=== PATIENT | male | born 1935 | race Caucasian/White ===

== ENCOUNTER → 2017-01-13 | Outpatient (CLI) | payer OTHER, MEDICARE ==
--- NOTE | 2017-01-13 14:17 | DIAGNOSTIC IMAGING REPORT ---
CHEST 2 VIEWS ROUTINE CLINICAL HISTORY: J44.9 Chronic obstructive pulmonary [id number] COMPARISON STUDY: No previous studies for comparison. FINDINGS: The heart is enlarged. There is mild interstitial thickening likely chronic. There is no lobar consolidation. There are no pleural effusions.[ There are surgical clips at the base of the neck. IMPRESSION: Cardiomegaly and mild interstitial thickening. No evidence of focal pulmonary consolidation Electronically signed by: Bhaskar Campos M.D. 01/13/2017 2:16 PM Dictated Date/Time: 01/13/2017 2:16 PM
== END | disposition home or self-care (01) ==
LOC: C.RAD1850 14:03
PROVIDERS: ATTEND Physician Assistant
DX: J44.9 Chronic obstructive pulmonary disease, unspecified (principal); I51.7 Cardiomegaly

== ENCOUNTER → 2017-01-29 | Outpatient (CLI) | payer OTHER, MEDICARE ==
[~2017-01-29] MED LIST: OPTIRAY 320 IV PRN; PATIENT'S ALLERGY INFO NEEDS ENTERED SCH
[2017-01-29 12:37] LABS: BLOOD UREA NITROGEN 19 mg/dl (7-18); BUN/CREATININE RATIO 13.6 (10-20); CALCIUM 9.3 mg/dl (8.5-10.1); CARBON DIOXIDE 30 mmol/L (21-32); CHLORIDE 101 mmol/L (98-107); GLUCOSE 99 mg/dl (70-99); POTASSIUM 4.1 mmol/L (3.5-5.1); SODIUM 137 mmol/L (136-145)
--- NOTE | 2017-01-29 13:13 | DIAGNOSTIC IMAGING REPORT ---
CT ANGIOGRAM OF THE CHEST CLINICAL HISTORY: Cough and dyspnea. Hypoxia. COMPARISON STUDY: Chest x-ray dated 01/13/2017. TECHNIQUE: Following the IV administration of 97 cc of Optiray 320, CT angiogram of the chest was performed from the upper abdomen to the thoracic inlet utilizing the pulmonary embolus protocol. Images are reviewed in the axial, sagittal, and coronal planes. 3-D MIPS images are created and assessed. IV contrast was administered without complication. A dose lowering technique was utilized adhering to the principles of ALARA. The examination is degraded by motion artifact. CT DOSE: 536.13 mGy.cm FINDINGS: Thyroid: Imaged portions of the thyroid gland are normal in size and attenuation. Thoracic aorta: There is atherosclerotic calcification of the thoracic aorta, which is normal in caliber and demonstrates standard 3-vessel arch anatomy. No dissection is seen. Pulmonary vasculature: The pulmonary trunk is normal in caliber. There are no filling defects identified in main, lobar, or proximal segmental pulmonary branches to suggest pulmonary embolus. Evaluation of the peripheral branches is degraded by motion artifact. Heart: The heart is enlarged and without pericardial effusion. The coronary arteries are densely calcified. Lungs and pleural spaces: Evaluation of the lung parenchyma is degraded by motion artifact. Advanced emphysematous change is identified. Layering secretions are present in the trachea. Linear scarring versus atelectasis is present in the lung bases. Mediastinum: There are scattered subcentimeter mediastinal lymph nodes. These are not pathologically enlarged by size criteria. Cathy: Clear. Axillae: There is no axillary lymphadenopathy. Upper abdomen: The partially visualized kidneys insert cortical atrophy. Partially visualized upper abdominal viscera is within normal limits. Skeletal structures: The skeletal structures are osteopenic. There are mild and age indeterminant superior endplate compression deformities of T12 and L1. No lytic or blastic bony lesions are seen. IMPRESSION: 1. Motion degraded examination. 2. There is no evidence of pulmonary embolus in the main, lobar, or proximal segmental pulmonary arteries. 3. Cardiomegaly and emphysema. 4. There is no airspace consolidation or pleural effusion. 5. Additional findings as above. Electronically signed by: Lobito Orr M.D. 01/29/2017 1:12 PM Dictated Date/Time: 01/29/2017 1:06 PM
[2017-01-29 13:36] LABS: INFLUENZA A PCR Neg for Influ A (NEG); INFLUENZA B PCR Neg for Influ B (NEG)
== END | disposition home or self-care (01) ==
LOC: C.CTS 11:35
PROVIDERS: ATTEND Physician Assistant
DX: R06.02 Shortness of breath (principal); R05 Cough; R09.02 Hypoxemia

== ENCOUNTER 2017-02-16 14:41 | Inpatient (IN) | payer OTHER, MEDICARE ==
[~2017-02-16] VITALS: Ht 177.8 cm; Wt 87.8 kg
[2017-02-16] VITALS (7 sets, daily range): BP systolic 102–128; BP diastolic 62–79; PULSE 63–89; TEMP 36.2–37.1; O2SAT 88–95; BMI 27.8
[2017-02-16] MEDS ORDERED: MAGNESIUM HYDROXIDE SUSP 30 ML UDC PO PRN (15:45)
[2017-02-16] MEDS ORDERED: ONDANSETRON INJ 2 MG/ML 2 ML VIAL IV PRN (15:45)
[2017-02-16] MEDS ORDERED: GLUCOSE 10 TABS/TUBE PO PRN (15:45)
[2017-02-16] MEDS ORDERED: DEXTROSE 50% 50 ML SYR IV PRN (15:45)
[2017-02-16] MEDS ORDERED: ACETAMINOPHEN 325 MG TAB PO PRN (15:45)
[2017-02-16] MEDS ORDERED: GLUCAGON FOR INJ 1 MG VIAL SQ PRN (15:45)
[2017-02-16] MEDS ORDERED: GLUCOSE 40% GEL 15 GM TUBE PO PRN (15:45)
[2017-02-16] MEDS ORDERED: METHYLPREDNISOLONE 125 MG VIAL IV STA (15:50)
[2017-02-16] MEDS ORDERED: METHYLPREDNISOLONE 125 MG in SYRINGE 0 ML IV ONE (16:00)
--- NOTE | 2017-02-16 16:07 | History and Physical ---
History & Physical Date & Time of Service: Feb 16, 2017 at 15:40 Chief Complaint: Copd Exacerbation Primary Care Physician: Paramjit Nieves M.D. History of Present Illness Source: patient, spouse 81 y/o M who was sent here from Dr. Kraus's office for COPD exacerbation that has failed outpt management x2. Pt states he has been seen in the office 2x in the past month for worsening SOB with activity. The first time, he was put on azithromycin and steroids. He felt better until a few days off of the medication and then his SOB returned. He was again seen in the office and put on levaquin and steroids. He again felt improved until a few days after finishing the medications. He finished steroids on 02/10 and abx over the weekend. He noted a fever on Thursday and Thursday, both days this broke with tylenol. He was nauseated on Thursday, but no emesis. He notes SOB with ambulation only, not at rest. He states that last night he needed 3L overnight into this AM. His O2 sats this AM was 97%, but then he had coffee and breakfast and it dropped to 93% at rest, then he had worsening SOB with ambulation so he called Dr. Kraus's office for an appt. He was seen by Jillian Sands who called for a direct admission as pt was requiring 5L in the office. Pt states he was not given nebs or CXR in the office. Pt states that other than the above, he has been feeling fine. Denies chest pain or LE pain. Pt denies abd pain, n/v/c/d, LE swelling. He has been eating without issue. Past Medical/Surgical History COPD, O2 dependent on 2L at baseline DM HTN CHF Hx of CVA Hx of cath, but no stents per pt and denies hx of [place] Family History Father from [place] Social History Smoking Status: Former Smoker (quit 20 yrs ago) Alcohol Use: none Drug Use: none Review of Systems Pertinent positives and negatives reviewed in HPI--all others negative Physical Exam General Appearance: WD/WN, no apparent distress Head: normocephalic, atraumatic Eyes: normal inspection, EOMI ENT: hearing grossly normal Neck: supple Respiratory/Chest: no respiratory distress, + decreased breath sounds, + wheezing (scant, trace wheezing in bases) Cardiovascular: regular rate, rhythm, no edema Abdomen/GI: non tender, soft Extremities/Musculoskelatal: no calf tenderness, no pedal edema Neurologic/Psych: alert, normal mood/affect, oriented x 3 Skin: normal color, warm/dry Impression Assessment and Plan 81 y/o M who was a direct admission from Dr. Kraus's office for COPD exacerbation that has failed outpt management. COPD exacerbation: Failed abx/steroids x2 rounds CTA / neg for acute issues, will hold on repeat for now CXR pending CBC, PRP, trop pending Nebs with mucomyst, steroids 125mg x1 -> 40mg BID, mucomyst Pt has had full courses of azithromycin and levaquin in the last month, will hold on further abx unless imaging suggests otherwise IS Pt is stable at this time, will hold on pulm c/s unless new issues arise Baseline O2 is 2L continuous DM: SSI PRN A1c pending HTN: stable, continue home meds CHF: stable, continue home meds CXR pending CAD/CVA: continue aspirin, plavix Other: DNR/DNI SCDs for DVT proph DM AHA diet Level of Care Med/Surg Resuscitation Status DO NOT RESUSCITATE VTE Prophylaxis VTE Risk Assessment Done? Y/N: Yes Risk Level: Low
[2017-02-16 16:09] LABS: HEMATOCRIT 39.4 % (42-52); MEAN CELL VOLUME 85.5 fL (80-100); MEAN CORPUSCULAR HEMOGLOBIN 29.1 pg (25-34); MEAN PLATELET VOLUME 9.8 fL (7.4-10.4); PLATELET COUNT 168 K/uL (130-400); RED BLOOD COUNT 4.61 M/uL (4.7-6.1); WHITE BLOOD COUNT 9.66 K/uL (4.8-10.8)
[2017-02-16] MEDS: ALBUT/IPRATROP 3MG/0.5MG NEB 3 ML VIAL INH SCH ×2 (16:12→19:09)
--- NOTE | 2017-02-16 16:16 | DIAGNOSTIC IMAGING REPORT ---
CHEST 2 VIEWS ROUTINE CLINICAL HISTORY: Persistent shortness of breath COMPARISON STUDY: 01/13/2017 FINDINGS: The heart remains enlarged. There is stable interstitial thickening. There is no focal pulmonary consolidation. There are no pleural effusions. Surgical clips are visualized the base the neck. There are suspected underlying emphysema.[ There is a vague nodular opacity within the axillary portion left chest. This is likely artifactual as no nodule was identified in this area on a chest CT performed 2 weeks prior IMPRESSION: 1. Emphysema 2. Cardiomegaly 3. Stable interstitial thickening Electronically signed by: Bhaskar Campos M.D. 02/16/2017 4:15 PM Dictated Date/Time: 02/16/2017 4:13 PM
[2017-02-16 16:35] LABS: BLOOD UREA NITROGEN 26 mg/dl (7-18); CALCIUM 9.4 mg/dl (8.5-10.1); CARBON DIOXIDE 32 mmol/L (21-32); CHLORIDE 95 mmol/L (98-107); CREATININE 1.61 mg/dl (0.60-1.40); GLUCOSE 132 mg/dl (70-99); POTASSIUM 3.3 mmol/L (3.5-5.1); SODIUM 136 mmol/L (136-145)
[2017-02-16] MEDS ORDERED: UMEC1INH INH (16:46)
[2017-02-16] MEDS ORDERED: OLME40TA30 PO (16:46)
[2017-02-16] MEDS ORDERED: OMEG10007 PO (16:46)
[2017-02-16] MEDS ORDERED: ASPI81TA28 PO (16:46)
[2017-02-16] MEDS ORDERED: CLOP1TAB15 PO (16:46)
[2017-02-16] MEDS ORDERED: GLC/500 PO (16:46)
[2017-02-16] MEDS ORDERED: ALBU1.257 NEB (16:46)
[2017-02-16] MEDS ORDERED: FLUT1INH INH (16:46)
[2017-02-16] MEDS ORDERED: HYDR12.55 PO (16:46)
[2017-02-16] MEDS ORDERED: METO-596 PO (16:46)
[2017-02-16] MEDS ORDERED: SIMV40TA2 PO (16:46)
[2017-02-16] MEDS ORDERED: AMLO-114 PO (16:46)
[2017-02-16] MEDS: INSULIN ASPART 100 UNITS/ML 3 ML PEN SC SCH ×2 (17:25→21:05)
[2017-02-16] MEDS: ACETYLCYSTEINE 20% INHAL SOLN ***DISPENSED BY RESP. INH SCH (19:09)
[2017-02-16] MEDS ORDERED: INFLUENZA VACCINE HIGH DOSE 65+ 0.5 ML SYR IM. ONE (21:00)
[2017-02-16] MEDS ORDERED: INFLUENZA ADMINISTRATION CHARGE ONE (21:00)
[2017-02-16] MEDS: SIMVASTATIN 40 MG TAB PO SCH (21:02)
[2017-02-16] MEDS: METOPROLOL TARTRATE 100 MG TAB PO SCH (21:03)
[2017-02-16] MEDS: METHYLPREDNISOLONE IV 40 MG in SYRINGE 0 ML IV SCH (21:06)
[2017-02-17] VITALS (11 sets, daily range): BP systolic 104–123; BP diastolic 63–68; PULSE 69–76; TEMP 36.1–36.3; O2SAT 87–94; BMI 27.8
[2017-02-17] MEDS: ALBUT/IPRATROP 3MG/0.5MG NEB 3 ML VIAL INH SCH ×4 (07:18→19:35)
[2017-02-17] MEDS: ACETYLCYSTEINE 20% INHAL SOLN ***DISPENSED BY RESP. INH SCH ×2 (07:19→19:35)
[2017-02-17 07:24] LABS: ESTIMATED AVERAGE GLUCOSE 212 mg/dl; HA1C FLAG Normal (Normal)
[2017-02-17] MEDS ORDERED: INSULIN ASPART 100 UNITS/ML 3 ML PEN SC ONE (08:45)
[2017-02-17] MEDS ORDERED: NURSING VERBAL MED ORDER ONE ×2 (08:45→11:30)
[2017-02-17] MEDS ORDERED: INSULIN GLARGINE SOLOSTAR 100 UNITS/ML 3 ML PEN SC ONE ×2 (08:45→11:45)
[2017-02-17] MEDS: INSULIN ASPART 100 UNITS/ML 3 ML PEN SC SCH ×4 (09:19→21:19)
[2017-02-17] MEDS: ASPIRIN 81 MG ECTAB PO SCH (09:58)
[2017-02-17] MEDS: CLOPIDOGREL BISULFATE 75 MG TAB PO SCH (09:58)
[2017-02-17] MEDS: AMLODIPINE BESYLATE 5 MG TAB PO SCH (10:00)
[2017-02-17] MEDS: HYDROCHLOROTHIAZIDE 25 MG TAB PO SCH (10:01)
[2017-02-17] MEDS: METOPROLOL TARTRATE 100 MG TAB PO SCH ×2 (10:02→20:40)
[2017-02-17] MEDS: OLMESARTAN MEDOXOMIL 40 MG TAB PO SCH (10:02)
[2017-02-17] MEDS: METHYLPREDNISOLONE IV 40 MG in SYRINGE 0 ML IV SCH ×2 (10:03→20:39)
[2017-02-17] MEDS ORDERED: PHARMACY GLYCEMIC MGMT CONSULT PRN (11:30)
[2017-02-17] MEDS ORDERED: POTASSIUM CHLR 20 MEQ / WTR 20 MEQ in PREMIXED WATER 100 ML IV STA (13:48)
[2017-02-17] MEDS ORDERED: INSULIN IV INFUSION PROTOCOL STA (14:09)
[2017-02-17] MEDS ORDERED: INSULIN PROTOCOL GOAL RANGE ONE (14:15)
[2017-02-17] MEDS ORDERED: SEVERE STRESS LEVEL ONE (14:15)
[2017-02-17] MEDS ORDERED: INSULIN HUMAN REGULAR IV BOLUS 3.5 UNIT in SYRINGE 0 ML IV SCH (14:30)
--- NOTE | 2017-02-17 14:34 | Pulmonary Consultation ---
History General Date of Service: Feb 17, 2017. Stated Complaint: Copd Exacerbation HPI The patient is a 81 year old male who presents to [facility] with complaints of Copd Exacerbation. The patient's primary care provider is Ezequiel, Paramjit Barahona. Mr. King is a 81-year-old male with past medical history of COPD (FEV1 of 36%, from PFT 08/13/2016), and oxygen dependent on 2 L, CHF, CAD, diabetes type 2, TIA, right bundle branch block who presents as a direct admission from [facility] pulmonary office. He says that he was in his normal state of health on until early December 2016. At that time he had increased dyspnea on exertion, fevers and chills with increased O2 requirements. Patient had chest x-ray done on 01/13/2017 which showed cardiomegaly and mild interstitial thickening. No evidence of focal consolidation. At that time he was seen in the office and prescribed Levaquin and given IM steroids and taper. CT of the chest was done on 2016 to rule out pulmonary embolism which was negative.There were compression defects of T12 and L1. No blastic or lytic bony lesions seen. BNP was 1329 at that time and influenza A and B PCR were negative. Patient had marked improvement of symptoms and was back to baseline until about 3 days prior to this admission. 3 days prior to admission patient states that he had subjective fever with a recorded temperature of about 101F. He checked his pulse oximetry and found it to be low at 2 L/m at rest and increase it to 5 L/ m. He denied any cough, wheeze, chest pain, palpitations, dyspnea at rest or on exertion, orthopnea, paroxysmal nocturnal dyspnea or lower extremity pain or edema. He states that he uses compression stockings which helps with lower extremity swelling. In the office his O2 saturation was 84% on 4 L/m which increased to 95% on 5 L. Pulmonary function test from 08/13/2016: FVC: 2.53/58%, FEV1: 1.15/36%, FEV1/FVC ratio: 49%, FEF 24-75%: 0.46-15%, VC: 2.55/63%, T.74/87%, RV: 3.19/115%, DLCO: 32%. His home medications from a respiratory standpoint include a 62.5 g 1 inhalation daily, Mucinex 600 mg tablet every 12 hours, prednisone 10 mg steroid taper, Breo Ellipta 200-25 micrograms inhaled 1 puff twice daily, ipratropium-albuterol every 4 hours as needed. Upon arrival to the ER on 02/16/2017, his vital signs were MAXIMUM TEMPERATURE of 37.1, pulse 82, respiratory rate of 18, blood pressure 128/79 with a SaO2 of 93% on 2 L nasal cannula. Laboratory data shows a white blood cell count of 9.6, hemoglobin of 13.4, hematocrit of 39.4, platelet count of 168. Chemistry significant for potassium 3.3, chloride 95, carbon dioxide 32, BUN 26, creatinine 1.61. Troponin less than 0.015. Chest x-ray showed stable interstitial thickening with emphysematous changes and cardiomegaly. At time of my evaluation, patient states that he is feeling much better. He denies any shortness of breath, chest pain, cough. He is out of bed to chair using incentive spirometry. States that he has been ambulating around the room without dyspnea on exertion. His current medications include Clopidogrel, Amlodipine, hydrochlorothiazide, Solu-Medrol 40 mg every 8 hours, metoprolol, acetylcysteine twice a day, simvastatin 40 mg daily at bedtime. Historian: patient, other (outpatient and inpatient EMR) Onset: last week Severity: moderate Complaint Status: improved Review of Systems Constitutional: reports: as stated in HPI Eyes: reports: as stated in HPI ENT: reports: as stated in HPI Cardiovascular: reports: as stated in HPI Respiratory: reports: as stated in HPI Gastrointestinal: reports: as stated in HPI Genitourinary - Male: reports: as stated in HPI Musculoskeletal: reports: as stated in HPI Integumentary: reports: as stated in HPI Neurologic: reports: as stated in HPI Psychiatric: reports: as stated in HPI Endocrine: as stated in HPI Hematologic / Lymphatic: as stated in HPI Allergic / Immunologic: as stated in HPI All Other Symptoms All Other Systems: Reviewed and Negative Past Medical History Past Medical History: CHF COPD CAD Cough Diabetes type 2 Hypertension Hypoxemia History of TIA Right sided carotid stenosis Past Surgical History: History of carotid thromboendarterectomy (12/2005). Family History Pertinent family history of cervical or uterine cancer. History of congestive heart failure, CAD. Social History Patient has previous history of tobacco use disorder. 150 pack years history of smoking, quit in year 1999. Smoking Status: Former Smoker Allergies Coded Allergies: No Known Allergies (Unverified , 02/16/17) Current Medications Reported Home Medications Medications Dose Route/Sig Max Daily Dose Days Date Category Incruse Ellipta (Umeclidinium [place]) 62.5 Mcg/Inh Inh 1 Puff INH DAILY 02/16/17 Reported Albuterol Sulfate 1.25 Mg/3 Ml Neb 1 Vial NEB BID 15 02/16/17 Reported Breo Ellipta (Fluticasone Furoate-Vilanterol) 1 Inh Inh 1 Puff INH DAILY 02/16/17 Reported [place]-3 (Fish Oil) 1 Ea Cap 1 Cap PO DAILY 02/16/17 Reported Aspirin Ec (Aspirin) 81 Mg Tab 81 Mg PO DAILY 02/16/17 Reported Zocor (Simvastatin) 40 Mg Tab 40 Mg PO QPM 02/16/17 Reported Lopressor (Metoprolol Tartrate) 100 Mg Tab 1 Tab PO BID 30 02/16/17 Reported Hydrochlorothiazide 12.5 Mg Tab 1 Tab PO DAILY 30 02/16/17 Reported Glucophage (Metformin Hcl) 500 Mg Tab 500 Mg PO DAILY 02/16/17 Reported Benicar Hct 40/12.5 (Olmesartan/HCTZ) Tab 1 Tab PO DAILY 30 02/16/17 Reported Norvasc (Amlodipine Besylate) 10 Mg Tab 10 Mg PO DAILY 02/16/17 Reported Plavix (Clopidogrel Bisulfate) 75 Mg Tab 75 Mg PO DAILY 02/16/17 Reported Physical Physical Exam Vital Signs: Date Time Temp Pulse Resp B/P (MAP) Pulse Ox O2 Delivery O2 Flow Rate FiO2 02/17/17 12:27 93 4.0 02/17/17 11:29 36.3 74 20 109/63 (78) 90 Room Air 4.0 Nasal Cannula 02/17/17 11:05 72 18 87 Nasal Cannula 3.0 02/17/17 09:15 94 Room Air 4.0 Nasal Cannula 02/17/17 08:37 36.1 76 18 123/65 (84) 94 Nasal Cannula 4.0 02/17/17 08:10 Nasal Cannula 4.0 02/17/17 07:32 75 18 94 Nasal Cannula 4.0 02/17/17 00:00 94 Nasal Cannula 4.0 02/16/17 23:27 36.2 63 18 108/71 (83) 90 Nasal Cannula 4.0 02/16/17 20:59 89 102/62 (75) 88 Nasal Cannula 3.0 02/16/17 19:12 88 18 94 Nasal Cannula 02/16/17 16:15 64 18 95 Nasal Cannula 3.0 02/16/17 16:12 37.1 82 18 128/79 93 Nasal Cannula 3.0 02/16/17 16:00 93 Nasal Cannula 3.0 02/16/17 15:44 37.1 82 18 128/79 (95) 93 Nasal Cannula 3.0 General Appearance: WELL-APPEARING, WD/WN, NO APPARENT DISTRESS Head: NORMOCEPHALIC, ATRAUMATIC Eyes: PERRLA, NO DISCHARGE, SCLERAE NORMAL ENT: NORMAL MOUTH EXAM, NORMAL THROAT EXAM, dentures Neck: NORMAL RANGE OF MOTION, NO TENDERNESS, TRACHEA MIDLINE, NO STRIDOR, SUPPLE Respiratory: other (decreased breath sounds bilaterally.) Cardiovasular: REGULAR RATE/RHYTHM, NORMAL S1S2, NO M/G/R Abdomen: NON TENDER, NORMAL BOWEL SOUNDS, NO REBOUND, NO MASSES (he is) Back: NORMAL INSPECTION ( here is as well as1) Upper Extremities: NO EDEMA, NO DEFORMITY ( over), NORMAL ROM Lower Extremities: NO EDEMA, NO DEFORMITY, NORMAL ROM (this visit was ED that he will remember all the questions or telemetry and the remember if you) Pulses: dorsalis pedis (R) (2+), dorsalis pedis (L) (2+) Neuro: ALERT, ORIENTED x 3, NORMAL MOTOR EXAM ( when she do remember that once he probably Sepsis.), NORMAL SPEECH, NORMAL MEMORY Psychiatric: NORMAL AFFECT, NO SUICIDAL IDEATION, CONTRACTS FOR SAFETY Diagnostics Labs Results Past 24 Hours Test 02/16/17 15:52 02/16/17 16:27 02/16/17 20:23 02/17/17 06:05 Range/Units White Blood Count 9.66 4.8-10.8 K/uL Red Blood Count 4.61 4.7-6.1 M/uL Hemoglobin 13.4 14.0-18.0 g/dL Hematocrit 39.4 42-52 % Mean Corpuscular Volume 85.5 80-100 fL Mean Corpuscular Hemoglobin 29.1 25-34 pg Mean Corpuscular Hemoglobin Concent 34.0 32-36 g/dl RDW Standard Deviation 48.1 36.4-46.3 fL RDW Coefficient of Variation 15.4 11.5-14.5 % Platelet Count 168 130-400 K/uL Mean Platelet Volume 9.8 7.4-10.4 fL Sodium Level 136 136-145 mmol/L Potassium Level 3.3 3.5-5.1 mmol/L Chloride Level 95 98-107 mmol/L Carbon Dioxide Level 32 21-32 mmol/L Anion Gap 9.0 3-11 mmol/L Blood Urea Nitrogen 26 7-18 mg/dl Creatinine 1.61 0.60-1.40 mg/dl Est Creatinine Clear Calc Drug Dose 41.5 ml/min Estimated GFR () 46.4 Estimated GFR (Non- 40.1 BUN/Creatinine Ratio 16.0 10-20 Random Glucose 132 70-99 mg/dl Calcium Level 9.4 8.5-10.1 mg/dl Troponin I < 0.015 0-0.045 ng/ml Bedside Glucose 149 229 70-99 mg/dl Estimated Average Glucose 212 mg/dl Hemoglobin A1c 9.0 4.5-5.6 % Test 02/17/17 08:32 02/17/17 11:17 Range/Units Bedside Glucose 380 387 70-99 mg/dl Impression Assessment and Plan Acute on chronic hypoxic respiratory failure COPD/asthma overlap syndrome CHF Patient has hypoxic respiratory failure that is multifactorial in nature. He has COPD on long-term oxygen therapy. It appears that he has had recent upper respiratory tract infection and has not returned back to his baseline. He still has increased oxygen requirements, but shows no sign of dyspnea, cough, chest pain or wheezing. At this time, continue his supplemental oxygen to maintain SaO2 between 88-92%. Obtain an ABG to calculate A-a gradient. Check BNP, repeat CT chest with contrast and lower extremity Dopplers to rule out DVT. I would also like to check a TTE with bubble study to evaluate for pulmonary hypertension and possible shunt. Continue with bronchodilators, Solu-Medrol 40 mg twice a day IV taper as tolerated Continue with aggressive pulmonary toilet with Mucomyst and flutter valve. Recommend DVT prophylaxis. I appreciate the consult. Please contact me if you've any further questions or concerns.
[2017-02-17] MEDS: POTASSIUM CHLR 10MEQ / WTR IV SCH ×2 (15:00→17:08)
--- NOTE | 2017-02-17 15:00 | Pharmacy Progress Note ---
Glycemic Control Intl Consult Date of Service Feb 17, 2017. Scope Glycemic Pharmacist consulted by Dr Parham on 02/17/17 for glycemic control and to write orders per [facility] inpatient glycemic control protocol. Objective Weight (Kilograms): 87.800 Accuchecks BSG (last 24hrs): Test 02/16/17 15:52 02/16/17 16:27 02/16/17 20:23 02/17/17 08:32 Random Glucose 132 mg/dl (70-99) Bedside Glucose 149 mg/dl (70-99) 229 mg/dl (70-99) 380 mg/dl (70-99) Test 02/17/17 11:17 02/17/17 14:07 Bedside Glucose 387 mg/dl (70-99) 401 mg/dl (70-99) Laboratory Data (last 24hrs) Test 02/16/17 15:52 02/17/17 06:05 Anion Gap 9.0 mmol/L BUN/Creatinine Ratio 16.0 Blood Urea Nitrogen 26 mg/dl Creatinine 1.61 mg/dl Potassium Level 3.3 mmol/L Sodium Level 136 mmol/L White Blood Count 9.66 K/uL Hemoglobin A1c 9.0 % HbA1c Test 02/17/17 06:05 Hemoglobin A1c 9.0 % (4.5-5.6) H Recent Pertinent Medications Outpatient Anti-diabetic Regimen: * Metformin 500mg PO daily * A1c = 9.0% (02/17/17) * Of note, A1c in August was 6.5% -- patient has been on steroids for the past month, which is likely the cause of increased A1c Risk Factors for Insulin Resistance: * Steroids: SoluMedrol 125mg IV x1, then 40mg IV q12h * Diet: Type 2 diabetic, AHA diet Assessment & Plan ASSESSMENT: * Mr King is a 81yo diabetic male who uses only Metformin as an outpatient. * A1c has increased from 6.5% (in August) to 9%, which is likely d/t the fact that patient has required steroid therapy for the past month for COPD. * BSGs have been significantly elevated today and failed to respond to aggressive doses of Novolog/Lantus. * Insulin gtt initiated this afternoon in an attempt to regain glycemic control while on high dose steroids. * Will need to watch patient's potassium levels and replace as needed while on infusion. PRP q4h ordered. PLAN FOR INPATIENT GLYCEMIC CONTROL: * Starting IV insulin infusion per severe stress protocol * Goal Range 110 - 180 mg/dl * Holding outpatient oral diabetes medications * Prandial Insulin with NOVOLOG per insulin infusion adjustment calculator, [facility] * Please note that the plan above was derived based on current level of insulin resistance and hospital stress. These recommendations are appropriate for inpatient admission only. Plan of care upon discharge will need to be reassessed to avoid potential outpatient hypo/hyperglycemia. Thank you.
[2017-02-17 15:01] LABS: ARTERIAL BLD GAS O2 SATURATION 89.3 % (90-95); ARTERIAL BLOOD GAS BASE EXCESS 3.1 mEq/L (-9-1.8); ARTERIAL BLOOD GAS HCO3 26 mmol/L (19-24); ARTERIAL BLOOD GAS PO2 60 mm/Hg (80-95); ARTERIAL BLOOD GAS pH 7.49 (7.35-7.45)
[2017-02-17 15:02] LABS: ALLEN TEST POS (POS); O2 ADMINISTRATION 4 L
[2017-02-17] MEDS: INSULIN REGULAR 250 UNITS in SODIUM CHLORIDE 0.9% 250ML 250 ML IV SCH ×9 (15:04→23:43)
--- NOTE | 2017-02-17 15:55 | Progress Note ---
Subjective Date of Service: Feb 17, 2017. Subjective Pt evaluation today including: conversation w/ patient, physical exam, chart review, lab review, review of studies, review of inpatient medication list Resting comfortably in bed States shortness of breath slightly improved Slight cough as well No other concerns at this time Review of Systems Constitutional: No fever, No chills, No sweats, No weight loss Respiratory: + cough, + shortness of breath, No sputum, No wheezing Cardiac: No chest pain, No orthopnea, No PND, No edema Abdomen: No pain, No nausea, No vomiting, No diarrhea, No constipation Musculoskeletal: No joint pain, No muscle pain, No swelling, No calf pain Male : No dysuria, No urinary frequency, No incontinence, No slowing stream Neurologic: No memory loss, No paralysis, No weakness, No numbness/tingling Psychiatric: No depression symptoms, No anhedonism, No anxiety, No insomnia Endo: No fatigue, No excessive thirst Skin: No rash, No itch Objective Vital Signs Date Time Temp Pulse Resp B/P (MAP) Pulse Ox O2 Delivery O2 Flow Rate FiO2 02/17/17 15:18 36.3 72 20 104/68 (80) 89 Nasal Cannula 4.0 02/17/17 15:18 69 18 91 Nasal Cannula 4.0 02/17/17 15:17 69 18 91 Nasal Cannula 4.0 02/17/17 12:27 93 4.0 02/17/17 11:29 36.3 74 20 109/63 (78) 90 Room Air 4.0 Nasal Cannula 02/17/17 11:05 72 18 87 Nasal Cannula 3.0 02/17/17 09:15 94 Room Air 4.0 Nasal Cannula 02/17/17 08:37 36.1 76 18 123/65 (84) 94 Nasal Cannula 4.0 02/17/17 08:10 Nasal Cannula 4.0 02/17/17 07:32 75 18 94 Nasal Cannula 4.0 02/17/17 00:00 94 Nasal Cannula 4.0 02/16/17 23:27 36.2 63 18 108/71 (83) 90 Nasal Cannula 4.0 02/16/17 20:59 89 102/62 (75) 88 Nasal Cannula 3.0 02/16/17 19:12 88 18 94 Nasal Cannula 02/16/17 16:15 64 18 95 Nasal Cannula 3.0 02/16/17 16:12 37.1 82 18 128/79 93 Nasal Cannula 3.0 02/16/17 16:00 93 Nasal Cannula 3.0 Physical Exam General Appearance: WD/WN, no apparent distress Eyes: normal inspection, PERRL, EOMI, sclerae normal Neck: supple, no adenopathy, thyroid normal, no JVD Respiratory/Chest: chest non-tender, no accessory muscle use, + decreased breath sounds, + wheezing Cardiovascular: no edema, no gallop, no JVD, no murmur Abdomen: normal bowel sounds, non tender, soft, no organomegaly Extremities: normal range of motion, non-tender, normal inspection, no pedal edema Neurologic/Psychiatric: no motor/sensory deficits, alert, normal mood/affect, oriented x 3 Laboratory Results Last 24 Hours Test 02/16/17 15:52 02/16/17 16:27 02/16/17 20:23 02/17/17 06:05 White Blood Count 9.66 K/uL Red Blood Count 4.61 M/uL Hemoglobin 13.4 g/dL Hematocrit 39.4 % Mean Corpuscular Volume 85.5 fL Mean Corpuscular Hemoglobin 29.1 pg Mean Corpuscular Hemoglobin Concent 34.0 g/dl RDW Standard Deviation 48.1 fL RDW Coefficient of Variation 15.4 % Platelet Count 168 K/uL Mean Platelet Volume 9.8 fL Sodium Level 136 mmol/L Potassium Level 3.3 mmol/L Chloride Level 95 mmol/L Carbon Dioxide Level 32 mmol/L Anion Gap 9.0 mmol/L Blood Urea Nitrogen 26 mg/dl Creatinine 1.61 mg/dl Est Creatinine Clear Calc Drug Dose 41.5 ml/min Estimated GFR () 46.4 Estimated GFR (Non- 40.1 BUN/Creatinine Ratio 16.0 Random Glucose 132 mg/dl Calcium Level 9.4 mg/dl Troponin I < 0.015 ng/ml Bedside Glucose 149 mg/dl 229 mg/dl Estimated Average Glucose 212 mg/dl Hemoglobin A1c 9.0 % Test 02/17/17 08:32 02/17/17 11:17 02/17/17 14:07 02/17/17 14:43 Bedside Glucose 380 mg/dl 387 mg/dl 401 mg/dl Pro-B-Type Natriuretic Peptide 1782 pg/ml Test 02/17/17 14:48 Arterial Blood pH 7.49 Arterial Blood Partial Pressure CO2 35 mmHg Arterial Blood Partial Pressure O2 60 mm/Hg Arterial Blood HCO3 26 mmol/L Arterial Blood Oxygen Saturation 89.3 % Arterial Blood Base Excess 3.1 mEq/L Arterial Blood Gas Delivery 4 L Edgar Test POS Assessment and Plan 81 y/o M who was a direct admission from Dr. Kraus's office for COPD exacerbation that has failed outpt management. Acute resp failure ?COPD exacerbation: Failed abx/steroids x2 rounds, improving CTA 01/29 neg for acute issues, pulm consulted, obtain ABG, CT chest, ECHO, LE doppler CBC, PRP, trop pending Nebs with mucomyst, steroids 125mg x1 -> 40mg BID, mucomyst Pt has had full courses of azithromycin and levaquin in the last month, will hold on further abx unless imaging suggests otherwise IS at bedside Pt is stable at this time, will hold on pulm c/s unless new issues arise Baseline O2 is 2L continuous DM: SSI PRN A1c 9.0 CKD stage 4 at baseline HTN: stable, continue home meds CHF: stable, continue home meds CAD/CVA: continue aspirin, plavix Other: DNR/DNI
--- NOTE | 2017-02-17 16:06 | DIAGNOSTIC IMAGING REPORT ---
BILATERAL LOWER EXTREMITY VENOUS DOPPLER HISTORY: Leg swelling. r/o DVT COMPARISON STUDY: None. FINDINGS: There is normal compressibility, flow, and augmentation within the bilateral lower extremity deep venous systems. IMPRESSION: No DVT within the right or left lower extremity. Electronically signed by: Leonard Urrutia M.D. 02/17/2017 4:04 PM Dictated Date/Time: 02/17/2017 4:04 PM
[2017-02-17 16:39] LABS: PROTHROMBIN TIME (PATIENT) 10.4 SECONDS (9.0-12.0)
[2017-02-17] MEDS: SIMVASTATIN 40 MG TAB PO SCH (20:39)
[2017-02-17 20:42] LABS: BUN/CREATININE RATIO 19.8 (10-20); CALCIUM 9.7 mg/dl (8.5-10.1); CREATININE 2.76 mg/dl (0.60-1.40); POTASSIUM 4.6 mmol/L (3.5-5.1)
[2017-02-17] MEDS: HEPARIN SOD 5000 UNIT/0.5 ML CARP SQ SCH (20:49)
[2017-02-18] VITALS (9 sets, daily range): BP systolic 102–124; BP diastolic 49–76; PULSE 59–73; TEMP 36.3–36.5; O2SAT 3–96
[2017-02-18] LABS: BUN/CREATININE RATIO 21.8 (10-20); CREATININE 2.84 mg/dl (0.60-1.40); POTASSIUM 4.2 mmol/L (3.5-5.1)
[2017-02-18] MEDS: INSULIN REGULAR 250 UNITS in SODIUM CHLORIDE 0.9% 250ML 250 ML IV SCH ×12 (01:08→14:23)
[2017-02-18 04:20] LABS: BUN/CREATININE RATIO 25.7 (10-20); CREATININE 2.47 mg/dl (0.60-1.40)
[2017-02-18] MEDS: HEPARIN SOD 5000 UNIT/0.5 ML CARP SQ SCH ×3 (06:22→21:38)
--- NOTE | 2017-02-18 06:27 | Clinical Documentation Query ---
CLINICAL DOCUMENTATION QUERY In your clinical opinion is this patient being managed for: ( X ) Chronic kidney disease, stage 4 ( ) Not Agree ( ) Other explanation of clinical findings (Please Explain) ( ) Unable to determine (Please Define) ( ) Need to Discuss The medical record reflects the following clinical findings, treatment, and risk factors. Clinical Indicators: Creatinine 2.47, GFR 23.9 Treatment: I&O, IV hydration Risk Factors: Age, hx CHF, poss SRUTHI Please clarify and document your clinical opinion in the progress notes and discharge summary. Terms such as "probable", "suspected", "likely", "questionable", "possible", or "still to be ruled out" are acceptable. IF IN AGREEMENT, YOU MUST DOCUMENT ABOVE DIAGNOSTIC STATEMENT IN DAILY PROGRESS NOTES AND DISCHARGE SUMMARY. This document is not part of the patient's record. Thank You, Viki Lara RN [phone]
[2017-02-18] MEDS: ALBUT/IPRATROP 3MG/0.5MG NEB 3 ML VIAL INH SCH ×4 (06:50→19:58)
[2017-02-18] MEDS: ACETYLCYSTEINE 20% INHAL SOLN ***DISPENSED BY RESP. INH SCH ×2 (06:50→19:58)
[2017-02-18] MEDS: CLOPIDOGREL BISULFATE 75 MG TAB PO SCH (07:56)
[2017-02-18] MEDS: METHYLPREDNISOLONE IV 40 MG in SYRINGE 0 ML IV SCH (07:56)
[2017-02-18] MEDS: ASPIRIN 81 MG ECTAB PO SCH (07:57)
[2017-02-18] MEDS: OLMESARTAN MEDOXOMIL 40 MG TAB PO SCH (07:57)
[2017-02-18] MEDS: AMLODIPINE BESYLATE 5 MG TAB PO SCH (07:57)
[2017-02-18] MEDS: METOPROLOL TARTRATE 100 MG TAB PO SCH ×2 (07:57→21:33)
[2017-02-18 08:10] LABS: HEMATOCRIT 38.1 % (42-52); MEAN CELL VOLUME 83.9 fL (80-100); MEAN CORPUSCULAR HEMOGLOBIN 28.9 pg (25-34); MEAN CORPUSCULAR HGB CONC 34.4 g/dl (32-36); MEAN PLATELET VOLUME 9.7 fL (7.4-10.4); PLATELET COUNT 217 K/uL (130-400); RED BLOOD COUNT 4.54 M/uL (4.7-6.1); WHITE BLOOD COUNT 23.18 K/uL (4.8-10.8)
[2017-02-18] MEDS: INSULIN GLARGINE SOLOSTAR 100 UNITS/ML 3 ML PEN SC SCH ×2 (08:26→21:37)
[2017-02-18] MEDS: INSULIN ASPART 100 UNITS/ML 3 ML PEN SC SCH ×4 (08:28→21:36)
[2017-02-18 08:40] LABS: BASO ABS # 0.01 K/uL (0-0.2); COMPLETE YES; IG% 0.5 %; LYMPH % 2.7 %; LYMPH ABS # 0.63 K/uL (1.2-3.4); NEUT % 94.8 %
[2017-02-18 08:47] LABS: BUN/CREATININE RATIO 26.8 (10-20); CALCIUM 9.6 mg/dl (8.5-10.1); CREATININE 2.33 mg/dl (0.60-1.40); POTASSIUM 3.5 mmol/L (3.5-5.1)
--- NOTE | 2017-02-18 11:08 | Pharmacy Progress Note ---
Glycemic: Assessment & Plan Date of Service Feb 18, 2017. Assessment & Plan Outpatient Anti-diabetic Regimen: * Metformin 500mg PO daily * A1c = 9.0% (02/17/17) * Of note, A1c in August was 6.5% -- patient has been on steroids for the past month, which is likely the cause of increased A1c ASSESSMENT: * Mr King is a 81yo diabetic male who uses only Metformin as an outpatient. * A1c has increased from 6.5% (in August) to 9%, which is likely d/t the fact that patient has required steroid therapy for the past month for COPD. * Insulin gtt initiated yesterday afternoon in an attempt to regain glycemic control while on high dose steroids. * SoluMedrol decreased from q12h to q24h this morning. * Will need to watch patient's potassium levels and replace as needed while on infusion. PRP q4h ordered. PLAN FOR INPATIENT GLYCEMIC CONTROL: * IV insulin infusion per severe stress protocol * Goal Range 110 - 180 mg/dl * May stop when instructed to HOLD via infusion adjustment calculator -- Patient's BSGs have been high this morning, so will overlap infusion with SQ Lantus until stable enough to hold gtt * Holding outpatient oral diabetes medications * Basal insulin with LANTUS 15 units SQ BID * 1st dose JACOB this morning * Correctional Insulin with NOVOLOG per scale ACHS or Q6hrs while NPO * Goal Range: Low 110 mg/dL - High 150 mg/dL * Correction Factor: 20 mg/dL/unit * Nutritional / Prandial insulin per carb ratio of 1 unit per 7 grams CHO consumed PLAN FOR DISCHARGE: * Given the change in patient's A1c since August, it is likely that hyperglycemia/ elevated A1c is due to steroid use. * If steroids are not continued long-term on discharge, patient may likely be discharged on current Metformin regimen. * If steroids will continue, patient will most likely require an adjustment to glycemic regimen on discharge. * Could maximize Metformin dosing, or consider the addition of insulin. * Pt will require f/u with PCP/endocrinology after discharge to titrate regimen until glycemic control is stabilized. * Please note that the plan above was derived based on current level of insulin resistance and hospital stress. These recommendations are appropriate for inpatient admission only. Plan of care upon discharge will need to be reassessed to avoid potential outpatient hypo/hyperglycemia. Thank you.
[2017-02-18 13:21] LABS: BUN/CREATININE RATIO 28.1 (10-20); CALCIUM 8.9 mg/dl (8.5-10.1); CREATININE 2.35 mg/dl (0.60-1.40); POTASSIUM 4.2 mmol/L (3.5-5.1)
--- NOTE | 2017-02-18 15:41 | Progress Note ---
Subjective Date of Service: Feb 18, 2017. Subjective Pt evaluation today including: conversation w/ patient, physical exam, chart review, lab review, review of studies, review of inpatient medication list Pt reports improvement in sob No productive cough at this time Resting comfortably in bed No further concerns per patient Review of Systems Constitutional: No fever, No chills, No sweats, No weight loss, No weakness Eyes: No worsening of vision, No eye pain, No redness, No discharge Respiratory: No cough, No sputum, No wheezing, No shortness of breath, No dyspnea on exertion Cardiac: No chest pain, No orthopnea, No PND, No edema, No claudication Abdomen: No pain, No nausea, No vomiting, No diarrhea, No constipation Musculoskeletal: No joint pain, No muscle pain, No swelling, No calf pain Male : No dysuria, No urinary frequency, No incontinence, No slowing stream Neurologic: No memory loss, No paralysis, No weakness, No numbness/tingling Psychiatric: No depression symptoms, No anhedonism, No anxiety, No insomnia Endo: No fatigue, No excessive thirst Skin: No rash, No itch Objective Vital Signs Date Time Temp Pulse Resp B/P (MAP) Pulse Ox O2 Delivery O2 Flow Rate FiO2 02/18/17 15:18 63 16 92 Nasal Cannula 3.0 02/18/17 15:00 36.4 63 18 102/49 (66) 95 Nasal Cannula 3.0 02/18/17 11:11 73 16 93 Nasal Cannula 3.0 02/18/17 08:45 Nasal Cannula 3.0 02/18/17 07:09 36.3 64 18 124/76 (92) 96 02/18/17 06:53 66 16 95 Nasal Cannula 4.0 02/18/17 00:55 36.4 59 18 115/68 (84) 91 Nasal Cannula 4.0 02/18/17 00:00 Nasal Cannula 4.0 02/17/17 19:38 71 18 93 Nasal Cannula 4.0 02/17/17 16:00 91 Nasal Cannula 4.0 Physical Exam General Appearance: WD/WN, no apparent distress Eyes: normal inspection, PERRL, EOMI, sclerae normal Neck: supple, no adenopathy, thyroid normal, no JVD Respiratory/Chest: chest non-tender, normal breath sounds, no respiratory distress, + decreased breath sounds Cardiovascular: no edema, no gallop, no JVD, no murmur Abdomen: normal bowel sounds, non tender, soft, no organomegaly Extremities: normal range of motion, non-tender, normal inspection, no pedal edema Neurologic/Psychiatric: no motor/sensory deficits, alert, normal mood/affect, oriented x 3 Skin: normal color, warm/dry, no rash Lymphatic: no adenopathy Laboratory Results Last 24 Hours Test 02/17/17 16:08 02/17/17 16:19 02/17/17 17:06 02/17/17 18:07 Bedside Glucose 277 mg/dl 207 mg/dl 219 mg/dl Prothrombin Time 10.4 SECONDS Prothromb Time International Ratio 1.0 Test 02/17/17 19:07 02/17/17 19:52 02/17/17 20:08 02/17/17 21:07 Bedside Glucose 213 mg/dl 179 mg/dl 194 mg/dl Sodium Level 128 mmol/L Potassium Level 4.6 mmol/L Chloride Level 89 mmol/L Carbon Dioxide Level 30 mmol/L Anion Gap 9.0 mmol/L Blood Urea Nitrogen 55 mg/dl Creatinine 2.76 mg/dl Est Creatinine Clear Calc Drug Dose 24.2 ml/min Estimated GFR () 24.2 Estimated GFR (Non- 20.9 BUN/Creatinine Ratio 19.8 Random Glucose 192 mg/dl Calcium Level 9.7 mg/dl Test 02/17/17 22:08 02/17/17 23:07 02/17/17 23:30 02/18/17 00:07 Bedside Glucose 181 mg/dl 131 mg/dl 123 mg/dl Sodium Level 131 mmol/L Potassium Level 4.2 mmol/L Chloride Level 92 mmol/L Carbon Dioxide Level 28 mmol/L Anion Gap 11.0 mmol/L Blood Urea Nitrogen 62 mg/dl Creatinine 2.84 mg/dl Est Creatinine Clear Calc Drug Dose 23.5 ml/min Estimated GFR () 23.4 Estimated GFR (Non- 20.2 BUN/Creatinine Ratio 21.8 Random Glucose 130 mg/dl Calcium Level 9.0 mg/dl Test 02/18/17 01:10 02/18/17 02:06 02/18/17 03:11 02/18/17 03:35 Bedside Glucose 117 mg/dl 151 mg/dl 60 mg/dl 202 mg/dl Test 02/18/17 03:43 02/18/17 04:29 02/18/17 06:16 02/18/17 07:13 Sodium Level 131 mmol/L Potassium Level 4.0 mmol/L Chloride Level 93 mmol/L Carbon Dioxide Level 29 mmol/L Anion Gap 9.0 mmol/L Blood Urea Nitrogen 64 mg/dl Creatinine 2.47 mg/dl Est Creatinine Clear Calc Drug Dose 27.1 ml/min Estimated GFR () 27.7 Estimated GFR (Non- 23.9 BUN/Creatinine Ratio 25.7 Random Glucose 193 mg/dl Calcium Level 9.0 mg/dl Bedside Glucose 147 mg/dl 143 mg/dl 169 mg/dl Test 02/18/17 07:57 02/18/17 08:01 02/18/17 08:17 02/18/17 09:14 Sodium Level 131 mmol/L Potassium Level 3.5 mmol/L Chloride Level 91 mmol/L Carbon Dioxide Level 29 mmol/L Anion Gap 12.0 mmol/L Blood Urea Nitrogen 63 mg/dl Creatinine 2.33 mg/dl Est Creatinine Clear Calc Drug Dose 28.7 ml/min Estimated GFR () 29.7 Estimated GFR (Non- 25.6 BUN/Creatinine Ratio 26.8 Random Glucose 172 mg/dl Calcium Level 9.6 mg/dl White Blood Count 23.18 K/uL Red Blood Count 4.54 M/uL Hemoglobin 13.1 g/dL Hematocrit 38.1 % Mean Corpuscular Volume 83.9 fL Mean Corpuscular Hemoglobin 28.9 pg Mean Corpuscular Hemoglobin Concent 34.4 g/dl Platelet Count 217 K/uL Mean Platelet Volume 9.7 fL Neutrophils (%) (Auto) 94.8 % Lymphocytes (%) (Auto) 2.7 % Monocytes (%) (Auto) 2.0 % Eosinophils (%) (Auto) 0.0 % Basophils (%) (Auto) 0.0 % Neutrophils # (Auto) 21.96 K/uL Lymphocytes # (Auto) 0.63 K/uL Monocytes # (Auto) 0.47 K/uL Eosinophils # (Auto) 0.00 K/uL Basophils # (Auto) 0.01 K/uL RDW Standard Deviation 47.3 fL RDW Coefficient of Variation 15.5 % Immature Granulocyte % (Auto) 0.5 % Immature Granulocyte # (Auto) 0.11 K/uL Bedside Glucose 211 mg/dl 295 mg/dl Test 02/18/17 10:15 02/18/17 11:13 02/18/17 12:13 02/18/17 12:38 Bedside Glucose 282 mg/dl 244 mg/dl 212 mg/dl Sodium Level 129 mmol/L Potassium Level 4.2 mmol/L Chloride Level 94 mmol/L Carbon Dioxide Level 26 mmol/L Anion Gap 9.0 mmol/L Blood Urea Nitrogen 66 mg/dl Creatinine 2.35 mg/dl Est Creatinine Clear Calc Drug Dose 28.5 ml/min Estimated GFR () 29.4 Estimated GFR (Non- 25.4 BUN/Creatinine Ratio 28.1 Random Glucose 244 mg/dl Calcium Level 8.9 mg/dl Test 02/18/17 13:15 02/18/17 14:18 02/18/17 15:19 Bedside Glucose 244 mg/dl 217 mg/dl Assessment and Plan 81 y/o M who was a direct admission from Dr. Kraus's office for COPD exacerbation that has failed outpt management. Acute resp failure likely multifactorial in nature ?COPD exacerbation: Failed abx/steroids x2 rounds, improving at this time, on 3L O2 CTA 01/29 neg for acute issues, pulm consulted, obtain ABG, CT chest, ECHO LE doppler neg for DVT CBC, PRP, trop pending Nebs with mucomyst, steroids 125mg x1 -> 40mg BID, cont to taper at this time Pt has had full courses of azithromycin and levaquin in the last month, will hold on further abx unless imaging suggests otherwise IS at bedside Pt is stable at this time, will hold on pulm c/s unless new issues arise Baseline O2 is 2L continuous DM: SSI PRN A1c 9.0, uncontrolled, glycemic control consult CKD stage 4 at baseline HTN: stable, continue home meds CHF: stable, continue home meds CAD/CVA: continue aspirin, plavix Other: DNR/DNI
--- NOTE | 2017-02-18 16:21 | ECHOCARDIOGRAM REPORT ---
*NOTICE TO RECEIVING [employer] This information is strictly Confidential and protected under [place] law. [place] law prohibits you from making any further disclosure of this information unless further disclosure is expressly permitted by the written consent of the person to whom it pertains or is authorized by law. A general authorization for the release of medical or other information is not sufficient for this purpose. Hospital accepts no responsibility if the information is made available to any other person, INCLUDING THE PATIENT. Interpretation Summary * Name: BJORN HAIR V Study Date: 02/18/2017 01:09 PM BP: 115/68 mmHg * Patient Location: .[id number]\[id number]\1 HR: 59 * : 1935 (M/d/yyyy) Gender: Male Height: 70 in * Age: 81 yrs Ethnicity: [place] Weight: 193 lb * Ordering Physician: Lupe Rendon * Referring Physician: Jillian Oscar * Performed By: Karina Polanco RDCS * * Reason For Study: PULMONARY HTN * Normal biventricular systolic function. * Mild concentric left ventricular hypertrophy. * Class 1 left ventricular diastolic dysfunction. * Normal chamber dimensions. * Mild tricuspid regurgitation. * Mildly elevated estimated right ventricular systolic pressure. * Normal estimated central venous pressure. * -- Conclusions -- * Aortic valve sclerosis mild, without significant aortic valvular stenosis. Procedure Details * A complete two-dimensional transthoracic echocardiogram was performed (2D, M-mode, Doppler and color flow Doppler). * A contrast injection of Definity was performed to improve assessment of LV function. * Contrast was injected into an intravenous site in the left arm. * One vial of Definity ultrasound contrast was diluted in normal saline to a total volume of 10 ml. A total of '3' ml of solution was administered during imaging. * Lot # [id number] of Definity utilized for procedure. * Expiration date 02/11. * The attending nurse who injected the contrast agent was FADUMO CONN RN. Left Ventricle * The left ventricle is normal in size. * There is mild concentric left ventricular hypertrophy. * Ejection Fraction = 55-60%. * Left ventricular systolic function is normal. * A full diastolic examination was done with clinical findings of Class I diastolic dysfunction. * The left ventricular wall motion is normal. Right Ventricle * The right ventricle is normal in size and function. * The right ventricular systolic function is normal as assessed by tricuspid annular plane systolic excursion (TAPSE) (normal >1.5 cm). Atria * The left atrial size is normal. * Right atrial size is normal. * No ASD detected; PFO is not assessed. Mitral Valve * The mitral valve is normal. * There is no mitral valve stenosis. * There is no mitral regurgitation noted. Tricuspid Valve * The tricuspid valve is normal. * There is no tricuspid stenosis. * Right ventricular systolic pressure is elevated at 40-50mmHg. * There is mild tricuspid regurgitation. Aortic Valve * The aortic valve is trileaflet. * The aortic valve opens well. * Aortic valve sclerosis mild, without significant aortic valvular stenosis. * Aortic stenosis is absent. * No aortic regurgitation is present. Pulmonic Valve * The pulmonic valve is not well visualized. * The pulmonary valve is inadequately visualized, but the Doppler data is adequate for interpretation. * There is no pulmonic valvular stenosis. * There is no significant pulmonary regurgitation. Great Vessels * The aortic root is normal size. Pericardium/Pleural * There is no pericardial effusion. Great Vessels * Normal inferior vena cava diameter and respiratory variation suggests normal central venous pressure. MMode 2D Measurements and Calculations IVSd 1.3 cm IVSs 1.1 cm LVIDd 5.5 cm LVIDs 3.7 cm LVPWd 1.3 cm LVPWs 1.4 cm IVS/LVPW 1.0 FS 32.3 % EDV(Teich) 144.8 ml ESV(Teich) 57.9 ml EF(Teich) 60.0 % EDV(cubed) 162.6 ml ESV(cubed) 50.4 ml EF(cubed) 69.0 % % IVS thick -17.04 % % LVPW thick 10.4 % LV mass(C)d 304.6 grams LV mass(C)dI 148.2 grams/m\S\2 LV mass(C)s 159.3 grams LV mass(C)sI 77.5 grams/m\S\2 CO(Teich) 5.6 l/min CI(Teich) 2.7 l/min/m\S\2 SV(Teich) 86.9 ml SI(Teich) 42.3 ml/m\S\2 CO(cubed) 7.3 l/min CI(cubed) 3.5 l/min/m\S\2 SV(cubed) 112.1 ml SI(cubed) 54.5 ml/m\S\2 Ao root diam 3.2 cm Ao root area 8.0 cm\S\2 ACS 1.7 cm LA dimension 3.4 cm asc Aorta Diam 3.4 cm LA/Ao 1.1 LVOT diam 2.0 cm LVOT area 3.3 cm\S\2 LVAd ap4 30.8 cm\S\2 LVLd ap4 8.6 cm EDV(MOD-sp4) 91.4 ml LVAs ap4 18.3 cm\S\2 LVLs ap4 7.0 cm ESV(MOD-sp4) 39.6 ml EF(MOD-sp4) 56.7 % LVAd ap2 35.2 cm\S\2 LVLd ap2 8.6 cm EDV(MOD-sp2) 117.0 ml LVAs ap2 21.1 cm\S\2 LVLs ap2 7.7 cm ESV(MOD-sp2) 45.8 ml EF(MOD-sp2) 60.9 % CO(MOD-sp4) 3.4 l/min CI(MOD-sp4) 1.6 l/min/m\S\2 SV(MOD-sp4) 51.8 ml SI(MOD-sp4) 25.2 ml/m\S\2 CO(MOD-sp2) 4.6 l/min CI(MOD-sp2) 2.3 l/min/m\S\2 SV(MOD-sp2) 71.2 ml SI(MOD-sp2) 34.6 ml/m\S\2 Doppler Measurements and Calculations MV E max eh 69.4 cm/sec MV A max eh 89.7 cm/sec MV E/A 0.77 MV dec time 0.20 sec Ao V2 max 107.2 cm/sec Ao max PG 4.6 mmHg Ao max PG (full) 2.6 mmHg TANIKA(V,A) 2.1 cm\S\2 TANIKA(V,D) 2.1 cm\S\2 LV V1 max PG 2.0 mmHg LV V1 max 70.2 cm/sec PA V2 max 64.0 cm/sec PA max PG 1.6 mmHg PI end-d eh 148.0 cm/sec TR max eh 304.1 cm/sec
[2017-02-18 17:03] LABS: BUN/CREATININE RATIO 28.9 (10-20); CALCIUM 9.2 mg/dl (8.5-10.1); CREATININE 2.46 mg/dl (0.60-1.40); POTASSIUM 4.1 mmol/L (3.5-5.1)
[2017-02-18 20:42] LABS: BUN/CREATININE RATIO 30.1 (10-20); CREATININE 2.52 mg/dl (0.60-1.40)
[2017-02-18 20:53] LABS: BETA-HYDROXYBUTYRATE 1.14 mg/dL (0.2-2.81)
[2017-02-18] MEDS: SIMVASTATIN 40 MG TAB PO SCH (21:32)
[2017-02-18 23:56] LABS: BUN/CREATININE RATIO 33.4 (10-20); CALCIUM 8.8 mg/dl (8.5-10.1); CREATININE 2.41 mg/dl (0.60-1.40); POTASSIUM 4.1 mmol/L (3.5-5.1)
[2017-02-19] VITALS (10 sets, daily range): BP systolic 110–183; BP diastolic 63–83; PULSE 56–87; TEMP 36.2–36.9; O2SAT 91–96; Ht 177.8 cm; Wt 87.8 kg
[2017-02-19] MEDS: INSULIN ASPART 100 UNITS/ML 3 ML PEN SC SCH ×6 (01:23→21:49)
[2017-02-19] MEDS: HEPARIN SOD 5000 UNIT/0.5 ML CARP SQ SCH ×3 (05:50→21:48)
[2017-02-19] MEDS: ACETYLCYSTEINE 20% INHAL SOLN ***DISPENSED BY RESP. INH SCH ×2 (06:58→20:00)
[2017-02-19] MEDS: ALBUT/IPRATROP 3MG/0.5MG NEB 3 ML VIAL INH SCH ×5 (06:58→20:00)
[2017-02-19] MEDS: AMLODIPINE BESYLATE 5 MG TAB PO SCH (07:22)
[2017-02-19] MEDS: CLOPIDOGREL BISULFATE 75 MG TAB PO SCH (07:22)
[2017-02-19] MEDS: HYDROCHLOROTHIAZIDE 25 MG TAB PO SCH (07:22)
[2017-02-19] MEDS: ASPIRIN 81 MG ECTAB PO SCH (07:23)
[2017-02-19] MEDS: METOPROLOL TARTRATE 100 MG TAB PO SCH ×2 (07:23→20:56)
[2017-02-19] MEDS: OLMESARTAN MEDOXOMIL 40 MG TAB PO SCH (07:23)
[2017-02-19] MEDS: METHYLPREDNISOLONE IV 40 MG in SYRINGE 0 ML IV SCH (08:10)
[2017-02-19] MEDS: INSULIN GLARGINE SOLOSTAR 100 UNITS/ML 3 ML PEN SC SCH (08:11)
[2017-02-19 10:39] LABS: URINE APPEARANCE CLEAR (CLEAR); URINE BILIRUBIN NEG (NEG); URINE COLOR YELLOW; URINE NITRITE NEG (NEG); URINE SPECIFIC GRAVITY 1.024 (1.000-1.030); UROBILINOGEN NEG (NEG)
[2017-02-19 10:45] LABS: MANUAL MICROSCOPIC REQUIRED? NO; REVIEW REQ? NO
[2017-02-19] MEDS ORDERED: SODIUM CHLORIDE 0.9% 250ML 250 ML IV SCH (11:15)
--- NOTE | 2017-02-19 11:18 | Progress Note ---
Subjective Date of Service: Feb 19, 2017. Subjective Pt evaluation today including: conversation w/ patient, physical exam, chart review, lab review, review of studies, review of inpatient medication list reviewed current stay, outpt records, PFTs, imaging, etc notes that his breathing is feeling better now - basically back to baseline. notes that he got sick with something, then they treated it, then as he was feeling better (relates when he had one day of medication left) he cut the grass /leaves - a lot of dust - then got worse again. now is back to baseline breathing no other new complaints did have small trip/went down to knees - appeared to have O2 tubing around ankle. no pain no true fall no LOC/etc Review of Systems all other ROS otherwise negative except for as above Objective Vital Signs Date Time Temp Pulse Resp B/P (MAP) Pulse Ox O2 Delivery O2 Flow Rate FiO2 02/19/17 10:54 58 16 94 Nasal Cannula 2.0 02/19/17 09:45 56 119/75 (90) 92 Nasal Cannula 2.0 02/19/17 08:15 Nasal Cannula 2.0 02/19/17 07:17 36.3 64 18 113/66 (82) 96 Nasal Cannula 3.0 02/19/17 06:58 63 16 96 Nasal Cannula 3.0 02/19/17 00:00 Nasal Cannula 3.0 02/18/17 23:14 36.5 67 20 112/65 (81) 3 Nasal Cannula 02/18/17 20:01 69 16 93 Nasal Cannula 3.0 02/18/17 15:55 92 Nasal Cannula 3.0 02/18/17 15:18 63 16 92 Nasal Cannula 3.0 02/18/17 15:00 36.4 63 18 102/49 (66) 95 Nasal Cannula 3.0 02/18/17 11:11 73 16 93 Nasal Cannula 3.0 Physical Exam General Appearance: no apparent distress Eyes: EOMI ENT: hearing grossly normal Neck: trachea midline Respiratory/Chest: no respiratory distress, no accessory muscle use, + pertinent finding (diminsihed air entry although better than anticipated. faint expiratory rhonchorus sounds no rales no wheeze good effort) Cardiovascular: regular rate, rhythm Extremities: normal range of motion Neurologic/Psychiatric: felt checker II-XII nml as tested, alert, normal mood/affect Skin: normal color, warm/dry Laboratory Results Last 24 Hours Test 02/18/17 11:13 02/18/17 12:13 02/18/17 12:38 02/18/17 13:15 Bedside Glucose 244 mg/dl 212 mg/dl 244 mg/dl Sodium Level 129 mmol/L Potassium Level 4.2 mmol/L Chloride Level 94 mmol/L Carbon Dioxide Level 26 mmol/L Anion Gap 9.0 mmol/L Blood Urea Nitrogen 66 mg/dl Creatinine 2.35 mg/dl Est Creatinine Clear Calc Drug Dose 28.5 ml/min Estimated GFR () 29.4 Estimated GFR (Non- 25.4 BUN/Creatinine Ratio 28.1 Random Glucose 244 mg/dl Calcium Level 8.9 mg/dl Test 02/18/17 14:18 02/18/17 15:19 02/18/17 16:24 02/18/17 16:28 Bedside Glucose 217 mg/dl 153 mg/dl 166 mg/dl Sodium Level 131 mmol/L Potassium Level 4.1 mmol/L Chloride Level 93 mmol/L Carbon Dioxide Level 28 mmol/L Anion Gap 10.0 mmol/L Blood Urea Nitrogen 71 mg/dl Creatinine 2.46 mg/dl Est Creatinine Clear Calc Drug Dose 27.2 ml/min Estimated GFR () 27.8 Estimated GFR (Non- 24.0 BUN/Creatinine Ratio 28.9 Random Glucose 156 mg/dl Calcium Level 9.2 mg/dl Test 02/18/17 20:05 02/18/17 20:09 02/18/17 23:28 02/19/17 04:03 Bedside Glucose 290 mg/dl 98 mg/dl Sodium Level 129 mmol/L 130 mmol/L Potassium Level 4.0 mmol/L 4.1 mmol/L Chloride Level 90 mmol/L 92 mmol/L Carbon Dioxide Level 28 mmol/L 30 mmol/L Anion Gap 11.0 mmol/L 8.0 mmol/L Blood Urea Nitrogen 76 mg/dl 81 mg/dl Creatinine 2.52 mg/dl 2.41 mg/dl Est Creatinine Clear Calc Drug Dose 26.5 ml/min 27.7 ml/min Estimated GFR () 27.0 28.5 Estimated GFR (Non- 23.3 24.6 BUN/Creatinine Ratio 30.1 33.4 Random Glucose 311 mg/dl 279 mg/dl Calcium Level 9.0 mg/dl 8.8 mg/dl Beta-Hydroxybutyric Acid 1.14 mg/dL Test 02/19/17 07:23 02/19/17 07:47 02/19/17 10:20 Bedside Glucose 71 mg/dl 106 mg/dl Urine Color YELLOW Urine Appearance CLEAR Urine pH 5.0 Urine Specific Crucible 1.024 Urine Protein NEG Urine Glucose (UA) NEG Urine Ketones NEG Urine Occult Blood NEG Urine Nitrite NEG Urine Bilirubin NEG Urine Urobilinogen NEG Urine Leukocyte Esterase NEG Assessment and Plan Acute resp failure likely related to COPD exacerbation w severe COPD/chronic respiratory failure at baseline: Failed abx/steroids x2 rounds CTA 01/29 neg for acute issues, pulm consulted, obtain ABG, CT chest, ECHO LE doppler neg for DVT improved on current treatment, appearing that he's getting back to baseline continue current care, will add mucinex at pt's request - notes that he's felt a benefit when he's taken it in the past increase activity/ambulation - anticipate home ~24hrs DM: SSI PRN A1c 9.0, uncontrolled, glycemic control consult - sugar control improving ARF on CKD - not entirely clear baseline as only recent labs available - but had Cr of 1.4 on 01/29 - so probably baseline stage 3. likley worse from dehydraiton - notes not drinking much not peeing much -- will start gentle IVF, f/u BMP in AM. because of low but real possibility of obstructive uropathy - will check FeNa and low threshold for renal US. for now since not having any retention on bedside assessment, and situation points to dehydration - will manage as such HTN: stable, continue home meds,. except will hold HCTZ due to ARF on CKD CHF: stable, continue home meds CAD/CVA: continue aspirin, plavix Other: DNR/DNI DVT proph - heparin SQ
[2017-02-19] MEDS: SODIUM CHLOR 0.45% + 20MEQ KCL 1,000 ML IV SCH ×2 (12:27→21:50)
--- NOTE | 2017-02-19 14:00 | Pulmonology Progress Note ---
Pulmonary Progress Note Date of Service Feb 19, 2017. Attending Dr. Rendon Subjective Patient seen and examined. He denies any chest pain or shortness of breath. Feeling better. Still with cough and greenish colored sputum Objective VS reviewed. Stable on 2L NC. O/E: Gen:AAOx,3 NAD. Sitting in chair. CVS: S1, S2, Chest/Lungs: Good air entry bilaterally, coarse at the bases Abd: soft/NT/ND/BS+ Ext:trace edema bilaterally, no clubbing, no cyanosis Lab reviewed. Na 130, Cl 92, Bun 81, Cr. 2.41 WBC 23 BNP 1782 Imaging viewed and reviewed by me. TTE 02/18/2017 * Reason For Study: PULMONARY HTN * Normal biventricular systolic function. * Mild concentric left ventricular hypertrophy. * Class 1 left ventricular diastolic dysfunction. * Normal chamber dimensions. * Mild tricuspid regurgitation. * Mildly elevated estimated right ventricular systolic pressure. RVSP about 40- 50 mmHg * Normal estimated central venous pressure. Venous Doppler Study 02/17/2017 IMPRESSION: No DVT within the right or left lower extremity. Medications reviewed. Assessment & Plan Acute on chronic hypoxic respiratory failure COPD/asthma overlap syndrome Diastolic CHF Mild pulmonary HTN--per echo CKD Mr. King appears to be improving from a respiratory standpoint. ABG from 2016 showed hypoxia on 4L. with PaO2 of 60. He is now back down to 2L and saturating well. BNP 1700, lower extremity Dopplers to rule out DVT are negative .TTE showed mild pulmonary HTN, most likely Type III from underlying pulmonary disease. There was also grade I diastolic dysfunction seen as well. No shunt seen.Despite his hypoxia he asymptomatic and has no dyspnea. At this time, continue his supplemental oxygen to maintain SaO2 between 88-92%. Continue with bronchodilators, Solu-Medrol 40 mg day IV taper as tolerated Ordered sputum culture. He will benefit from continued diureses as his kidney function tolerates. Continue with aggressive pulmonary toilet with Mucomyst and flutter valve, if needed. Recommend DVT prophylaxis. I will sign off case at this time. Please consult me if you have any other question or concerns. He should follow up with [facility]monary [facility] upon discharge. Data Medications: Current Inpatient Medications Medications (Trade) Dose Ordered Sig/Eduard Route Start Time Stop Time Status Last Admin Dose Admin Acetaminophen (Tylenol Tab) 650 mg Q4H PRN PO 02/16/17 15:45 03/18/17 15:44 Magnesium Hydroxide (Milk Of Magnesia Susp) 30 ml Q6H PRN PO 02/16/17 15:45 03/18/17 15:44 Ondansetron HCl (Zofran Inj) 4 mg Q6H PRN IV 02/16/17 15:45 03/18/17 15:44 Glucose (Glucose 40% Gel) 15-30 GRAMS 15 GRAMS... UD PRN PO 02/16/17 15:45 03/18/17 15:44 Glucose (Glucose Chew Tab) 4-8 Tablets 4 Tabl... UD PRN PO 02/16/17 15:45 03/18/17 15:44 Dextrose (Dextrose 50% 50ML Syringe) 25-50ML OF 50% DW IV FOR... UD PRN IV 02/16/17 15:45 03/18/17 15:44 02/18/17 03:19 50 ML Glucagon (Glucagon Inj) 1 mg UD PRN SQ 02/16/17 15:45 03/18/17 15:44 Albuterol/ Ipratropium (Duoneb) 3 ml QIDR INH 02/16/17 16:00 03/18/17 15:59 02/19/17 06:58 3 ML Acetylcysteine (Mucomyst 20% Inh Soln) 5 ml BIDR INH 02/16/17 20:00 03/18/17 19:59 02/18/17 19:58 5 ML Clopidogrel Bisulfate (plAVix TAB) 75 mg QAM PO 02/17/17 09:00 03/19/17 08:59 02/19/17 07:22 75 MG Amlodipine Besylate (Norvasc Tab) 10 mg QAM PO 02/17/17 09:00 03/19/17 08:59 02/19/17 07:22 10 MG Olmesartan (Benicar Tab) 40 mg QAM PO 02/17/17 09:00 03/19/17 08:59 02/19/17 07:23 40 MG Hydrochlorothiazide (Hydrochlorothiazide Tab) 25 mg Q2D@0900 PO 02/17/17 09:00 03/19/17 08:59 02/19/17 07:22 25 MG Metoprolol Tartrate (Lopressor Tab) 100 mg BID PO 02/16/17 21:00 03/18/17 20:59 02/19/17 07:23 100 MG Simvastatin (Zocor Tab) 40 mg PM PO 02/16/17 21:00 03/18/17 20:59 02/18/17 21:32 40 MG Aspirin (Ecotrin Tab) 81 mg QAM PO 02/17/17 09:00 03/19/17 08:59 02/19/17 07:23 81 MG Miscellaneous Information (Order Awaiting Action) 1 ea QS N/A 02/17/17 00:00 03/19/17 00:00 Miscellaneous Information (Consult Glycemic Management Pharmacy) 1 ea UD PRN N/A 02/17/17 11:30 03/19/17 11:29 Heparin Sodium (Porcine) (Heparin Sq 5000 Unit/0.5ml) 5,000 unit Q8 SQ 02/17/17 22:00 03/19/17 21:59 02/19/17 05:50 5,000 UNIT Insulin Glargine (Lantus Solostar Pen) 15 units BID SC 02/18/17 09:00 03/20/17 08:59 02/19/17 08:11 15 UNITS Insulin Aspart (novoLOG ASPART) SLIDING SCALE If C... ACHS SC 02/18/17 11:00 03/20/17 10:59 02/19/17 08:11 5 UNITS Methylprednisolone Sodium Succinate 40 mg/Syringe 0.64 ml @ 1.5 mls/min DAILY@0900 IV 02/19/17 09:00 03/18/17 21:59 02/19/17 08:10 1.5 MLS/MIN Vital Signs: Date Time Temp Pulse Resp B/P (MAP) Pulse Ox O2 Delivery O2 Flow Rate FiO2 02/19/17 07:17 36.3 64 18 113/66 (82) 96 Nasal Cannula 3.0 02/19/17 06:58 63 16 96 Nasal Cannula 3.0 02/19/17 00:00 Nasal Cannula 3.0 02/18/17 23:14 36.5 67 20 112/65 (81) 3 Nasal Cannula 02/18/17 20:01 69 16 93 Nasal Cannula 3.0 02/18/17 15:55 92 Nasal Cannula 3.0 02/18/17 15:18 63 16 92 Nasal Cannula 3.0 02/18/17 15:00 36.4 63 18 102/49 (66) 95 Nasal Cannula 3.0 02/18/17 11:11 73 16 93 Nasal Cannula 3.0 02/18/17 08:45 Nasal Cannula 3.0 Laboratory Results: Last 24 Hours Test 02/18/17 09:14 02/18/17 10:15 02/18/17 11:13 02/18/17 12:13 Bedside Glucose 295 mg/dl 282 mg/dl 244 mg/dl 212 mg/dl Test 02/18/17 12:38 02/18/17 13:15 02/18/17 14:18 02/18/17 15:19 Sodium Level 129 mmol/L Potassium Level 4.2 mmol/L Chloride Level 94 mmol/L Carbon Dioxide Level 26 mmol/L Anion Gap 9.0 mmol/L Blood Urea Nitrogen 66 mg/dl Creatinine 2.35 mg/dl Est Creatinine Clear Calc Drug Dose 28.5 ml/min Estimated GFR () 29.4 Estimated GFR (Non- 25.4 BUN/Creatinine Ratio 28.1 Random Glucose 244 mg/dl Calcium Level 8.9 mg/dl Bedside Glucose 244 mg/dl 217 mg/dl 153 mg/dl Test 02/18/17 16:24 02/18/17 16:28 02/18/17 20:05 02/18/17 20:09 Sodium Level 131 mmol/L 129 mmol/L Potassium Level 4.1 mmol/L 4.0 mmol/L Chloride Level 93 mmol/L 90 mmol/L Carbon Dioxide Level 28 mmol/L 28 mmol/L Anion Gap 10.0 mmol/L 11.0 mmol/L Blood Urea Nitrogen 71 mg/dl 76 mg/dl Creatinine 2.46 mg/dl 2.52 mg/dl Est Creatinine Clear Calc Drug Dose 27.2 ml/min 26.5 ml/min Estimated GFR () 27.8 27.0 Estimated GFR (Non- 24.0 23.3 BUN/Creatinine Ratio 28.9 30.1 Random Glucose 156 mg/dl 311 mg/dl Calcium Level 9.2 mg/dl 9.0 mg/dl Bedside Glucose 166 mg/dl 290 mg/dl Beta-Hydroxybutyric Acid 1.14 mg/dL Test 02/18/17 23:28 02/19/17 04:03 02/19/17 07:23 02/19/17 07:47 Sodium Level 130 mmol/L Potassium Level 4.1 mmol/L Chloride Level 92 mmol/L Carbon Dioxide Level 30 mmol/L Anion Gap 8.0 mmol/L Blood Urea Nitrogen 81 mg/dl Creatinine 2.41 mg/dl Est Creatinine Clear Calc Drug Dose 27.7 ml/min Estimated GFR () 28.5 Estimated GFR (Non- 24.6 BUN/Creatinine Ratio 33.4 Random Glucose 279 mg/dl Calcium Level 8.8 mg/dl Bedside Glucose 98 mg/dl 71 mg/dl 106 mg/dl
--- NOTE | 2017-02-19 14:18 | Pharmacy Progress Note ---
Glycemic: Assessment & Plan Date of Service Feb 19, 2017. Assessment & Plan Outpatient Anti-diabetic Regimen: * Metformin 500mg PO daily * A1c = 9.0% (02/17/17) * Of note, A1c in August was 6.5% -- patient has been on steroids for the past month, which is likely the cause of increased A1c ASSESSMENT: * Mr King is a 81yo diabetic male who uses only Metformin as an outpatient. * A1c has increased from 6.5% (in August) to 9%, which is likely d/t the fact that patient has required steroid therapy for the past month for COPD. * Insulin gtt was able to be stopped last evening. Other than an episode of significant hyperglycemia at HS, BSGs have been well-controlled today. * Expect that patient's insulin needs will continue to decrease as steroid tapers. Will begin to loosen insulin parameters at this time in an attempt to avoid hypoglycemia. PLAN FOR INPATIENT GLYCEMIC CONTROL: * Holding outpatient oral diabetes medications * Basal insulin with LANTUS SQ BID, per scale: * less than 100 mg/dL: No Lantus * 100 - 150 mg/dL: 8 units * greater than 150mg/dL: 15 units * Correctional Insulin with NOVOLOG per scale ACHS or Q6hrs while NPO * Goal Range: Low 110 mg/dL - High 150 mg/dL * Correction Factor: 25 mg/dL/unit * Nutritional / Prandial insulin per carb ratio of 1 unit per 9 grams CHO consumed PLAN FOR DISCHARGE: * Given the change in patient's A1c since August, it is likely that hyperglycemia/ elevated A1c is due to steroid use. * If steroids are not continued long-term on discharge, patient may likely be discharged on current Metformin regimen. * If steroids will continue, patient will most likely require an adjustment to glycemic regimen on discharge. * Could maximize Metformin dosing, or consider the addition of insulin. * Pt will require f/u with PCP/endocrinology after discharge to titrate regimen until glycemic control is stabilized. * Please note that the plan above was derived based on current level of insulin resistance and hospital stress. These recommendations are appropriate for inpatient admission only. Plan of care upon discharge will need to be reassessed to avoid potential outpatient hypo/hyperglycemia. Thank you.
[2017-02-19] MEDS: GUAIFENESIN 600 MG TABCR PO SCH (20:56)
[2017-02-19] MEDS: SIMVASTATIN 40 MG TAB PO SCH (20:56)
[2017-02-19] MEDS ORDERED: INSULIN GLARGINE SOLOSTAR 100 UNITS/ML 3 ML PEN SC SCH (21:00)
[2017-02-20] MEDS: INSULIN ASPART 100 UNITS/ML 3 ML PEN SC SCH ×3 (00:38→09:00)
[2017-02-20] MEDS: HEPARIN SOD 5000 UNIT/0.5 ML CARP SQ SCH (05:51)
[2017-02-20 06:52] LABS: BUN/CREATININE RATIO 37.7 (10-20); CALCIUM 8.9 mg/dl (8.5-10.1); CREATININE 1.77 mg/dl (0.60-1.40); POTASSIUM 4.6 mmol/L (3.5-5.1)
[2017-02-20 06:55] VITALS: BP 112/72; PULSE 75; TEMP 36.2; O2SAT 93
[2017-02-20 07:21] VITALS: PULSE 75; O2SAT 93
[2017-02-20] MEDS: ACETYLCYSTEINE 20% INHAL SOLN ***DISPENSED BY RESP. INH SCH (07:21)
[2017-02-20] MEDS: ALBUT/IPRATROP 3MG/0.5MG NEB 3 ML VIAL INH SCH ×2 (07:21→11:49)
[2017-02-20] MEDS: ASPIRIN 81 MG ECTAB PO SCH (08:08)
[2017-02-20] MEDS: OLMESARTAN MEDOXOMIL 40 MG TAB PO SCH (08:08)
[2017-02-20] MEDS: CLOPIDOGREL BISULFATE 75 MG TAB PO SCH (08:08)
[2017-02-20] MEDS: METHYLPREDNISOLONE IV 40 MG in SYRINGE 0 ML IV SCH (08:09)
[2017-02-20] MEDS: AMLODIPINE BESYLATE 5 MG TAB PO SCH (08:09)
[2017-02-20] MEDS: GUAIFENESIN 600 MG TABCR PO SCH (08:09)
[2017-02-20] MEDS: METOPROLOL TARTRATE 100 MG TAB PO SCH (08:10)
[2017-02-20] MEDS: SODIUM CHLOR 0.45% + 20MEQ KCL 1,000 ML IV SCH (08:11)
[2017-02-20] MEDS ORDERED: INSULIN GLARGINE SOLOSTAR 100 UNITS/ML 3 ML PEN SC SCH (09:00)
[2017-02-20] MEDS ORDERED: PRD10 PO (09:24)
--- NOTE | 2017-02-20 09:36 | Discharge Instructions ---
Discharge Instructions Date of Service Feb 20, 2017. Admission Reason for Admission: Copd Exacerbation Discharge Discharge Diagnosis / Problem: COPD exacerbation, improving Discharge Goals Goal(s): Diagnostic testing, Therapeutic intervention Activity Recommendations Activity Limitations: resume your previous activity . Instructions / Follow-Up Instructions / Follow-Up COPD exacerbation -it appears that the difficulty wasn't necessarily one thing that didn't get better, it is far more likely that you had an infection, and then exposure to the dust/leaves re-flared things once you were starting to get better from the infection. at this point you appear to be well on track to be doing OK -we'll have you on a tapering dose of prednisone for the next 8 days - 40mg (4 pills) for two days, then 30mg (3 pills) for two days, then 20mg (2 pills) for two days, then 10mg (1 pill) for two days. as you get down to the 10-20mg range if you feel at all like your breathing has worsened, call Jillian Sands's office -- they might need to extend the prednisone slightly longer -try as best you can to avoid things that might flare up your lungs again (dust/ leaves/grass as far as irritant exposures, and do lots of hand-washing/hand- sanitizing to try to avoid new infection exposures -- of course it's impossible to avoid everything but working on extra effort in this regard does cut down on things that can flare you up; right now your lungs will be more sensitive to new problems - as you get further removed from this flare up, then you should slowly get back to your "normal self") dehydration -your kidney numbers were up in a way consistent with dehydration - this improved with IV fluids. your numbers aren't quite back to your baseline, so we 'll want you to get labs sometime next week just to follow through with things continuing to improve. -for now, while we'll have you continue the combination pill of olmesartan/ hydrochlorothiazide (Benicar HCT) we'll want you to skip the separate, additional 12.5mg of hydrochlorothiazide that you're listed as taking. as time progresses, and based on your labs, Dr Nieves will be able to continue to direct you on what best to do with the hydrochlorothiazide in the future uncontrolled type 2 diabetes -remember, the main reason we care about diabetes is that "high sugars clog arteries" and being uncontrolled really raises your risk of heart attacks and strokes -your A1c was 9.0. an A1c is a three month average of what your sugars have been running (red blood cells live for about three months, and an A1c is a measure of how sugar covered your red cells are). the "tipping point" where we start to worry a lot more about high sugars clogging arteries is an A1c above about 7.0 -as we discussed, for most people, type 2 diabetes is HEAVILY caused by our lifestyle (eating, exercise habits) and only in a small part controlled by our genetics. because of this, the good news is that changing your eating habits can often make a huge impact on the control of your diabetes -focus in on the starchy and sugary carbohydrates in your diet -- these are going to be what most heavily drives your sugar up -check sugars about 2 hours after eating - with a goal of about 100-150. anything above 150 should make you look back at what you just ate and see how much sugar/starch/carbs were there -- and then work to reduce/avoid those kinds of foods next time -because you're going to be on a prednisone taper, the next week or so may show you higher sugars that relate to the steroid dosing as much as what you ate. the best plan for that since it's going to be so short term will be to "ride it out" -because your A1c is so uncontrolled, you might initially see that even when you're not eating sugary/starchy foods your numbers are still higher than they should be - this is more a sign of an unhealthy metabolism that will slowly correct as you eat less and less bad carbs. you'll still see a significant difference when you eat foods with less bad carbs than others - it's just that initially you might see everything being in technically high ranges. as you eat less bad carbs your metabolism should slowly start to correct and then healthier for you foods / foods without as much carbs you will start to only see high sugars when you eat foods with too many sugary/starchy/ bad carbs -you should not have low sugars as you do these changes in your eating - your home medication being metformin, metformin does not cause sugars to go low. the low sugar happened in the hospital because of food changes and the use of insulin that they commonly employ when people are in hospital and on insulin Current Hospital Diet Patient's current hospital diet: Diabetes Type 2 Diet, AHA Diet (Heart Healthy) Discharge Diet Recommended Diet: Diabetes Type 2 Diet Pending Studies Studies pending at discharge: no Laboratory Results Hemoglobin A1c Test 02/17/17 06:05 Range/Units Estimated Average Glucose 212 mg/dl Hemoglobin A1c 9.0 H 4.5-5.6 % Medical Emergencies . Who to Call and When: Medical Emergencies: If at any time you feel your situation is an emergency, please call 911 immediately. . Non-Emergent Contact Non-Emergency issues call your: Primary Care Provider . . "Provider Documentation" section prepared by Anthony Harvey. . VTE Core Measure Inpt VTE Proph given/why not?: Unfractionated heparin SQ
--- NOTE | 2017-02-20 10:26 | Pharmacy Progress Note ---
Glycemic: Assessment & Plan Date of Service Feb 20, 2017. Assessment & Plan Outpatient Anti-diabetic Regimen: * Metformin 500mg PO daily * A1c = 9.0% (02/17/17) * Of note, A1c in August was 6.5% -- patient has been on steroids for the past month, which is likely the cause of increased A1c ASSESSMENT: * Mr King is a 81yo diabetic male who uses only Metformin as an outpatient. * A1c has increased from 6.5% (in August) to 9%, which is likely d/t the fact that patient has required steroid therapy for the past month for COPD. * Pt required IV insulin infusion 02/17-02/18 d/t severe steroid induced hyperglycemia. Pt was transitioned off of IV insulin infusion to SQ basal bolus insulin regimen on 02/18 afternoon. * Pt has been requiring ~ 75 units of insulin per day with Solumendrol 40mg IV once daily. * Expect that patient's insulin needs will continue to decrease as steroid tapers. However, since A1c increased 3 points with steroids for the past month it is likely that he will need an additional agent at d/c for steroid induced hyperglycemia. PLAN FOR INPATIENT GLYCEMIC CONTROL: * Holding outpatient oral diabetes medications * Basal insulin with Lantus --> change to once daily dosing for once daily steroids LANTUS SQ BID, per scale: * Lantus 20 units SQ daily * Bolus insulin * NovoLog per scale ACHS or Q6hrs while NPO * Goal Range: Low 110 mg/dL - High 150 mg/dL * Correction Factor: 20 mg/dL/unit * Nutritional / Prandial insulin per carb ratio of 1 unit per 7 grams CHO consumed PLAN FOR DISCHARGE: * Given the change in patient's A1c since August, it is likely that hyperglycemia/ elevated A1c is due to steroid use. * If steroids are not continued long-term on discharge, patient may likely be discharged on current Metformin regimen. * If steroids will continue, patient will most likely require an adjustment to glycemic regimen on discharge. * Could maximize Metformin dosing (titrate to Metformin 500mg PO BIDM then up to 1,000mg BIDM), or consider the addition of insulin. Recommend NPH 30 units sq daily administered at the same time prednisone is taken. Pt should decrease NPH dose by 10 units with every 10mg decrease in prednisone dose * May will require f/u with PCP/endocrinology after discharge to titrate regimen until glycemic control is stabilized.
[2017-02-20 10:38] VITALS: BP 112/72; PULSE 75; TEMP 36.2; O2SAT 93
[2017-02-20 11:49] VITALS: PULSE 68; O2SAT 93
--- NOTE | 2017-02-20 18:09 | Discharge Summary ---
Discharge Summary Date of Service Feb 20, 2017. Discharge Summary Admission Date: Feb 16, 2017 at 15:39 Discharge Date: Feb 20, 2017 Discharge Disposition: Home Principal Diagnosis: COPD exacerbation Procedures: Last 24 Hours Test 02/19/17 20:01 02/20/17 00:01 02/20/17 04:04 02/20/17 04:46 Bedside Glucose 351 mg/dl 304 mg/dl 58 mg/dl 116 mg/dl Test 02/20/17 05:47 02/20/17 07:29 02/20/17 11:21 Sodium Level 137 mmol/L Potassium Level 4.6 mmol/L Chloride Level 102 mmol/L Carbon Dioxide Level 27 mmol/L Anion Gap 8.0 mmol/L Blood Urea Nitrogen 67 mg/dl Creatinine 1.77 mg/dl Est Creatinine Clear Calc Drug Dose 37.8 ml/min Estimated GFR () 41.4 Estimated GFR (Non- 35.7 BUN/Creatinine Ratio 37.7 Random Glucose 82 mg/dl Calcium Level 8.9 mg/dl Bedside Glucose 77 mg/dl 109 mg/dl Consultations: pulmonary Medication Reconciliation New Medications: Prednisone (Prednisone) 10 Mg Tab 1 TAB PO UD, #20 TAB 4 po daily x 2 days then 3 po daily x 2 days then 2 po daily x 2 days then 1 po daily x 2 days then stop Continued Medications: Albuterol Sulfate (Albuterol Sulfate) 1.25 Mg/3 Ml Neb 1 VIAL NEB BID for 15 Days, #150 ML Amlodipine (Norvasc) 10 Mg Tab 10 MG PO DAILY, TAB Aspirin (Aspirin Ec) 81 Mg Tab 81 MG PO DAILY Clopidogrel (Plavix) 75 Mg Tab 75 MG PO DAILY, TAB Fish Oil (Forrest-3) 1 Ea Cap 1 CAP PO DAILY, CAP Fluticasone Furoate-Vilanterol (Breo Ellipta) 1 Inh Inh 1 PUFF INH DAILY Metformin Hcl (Glucophage) 500 Mg Tab 500 MG PO DAILY, TAB Metoprolol Tartrate (Lopressor) 100 Mg Tab 1 TAB PO BID for 30 Days, #60 TAB 5 Refills Olmesartan/Hctz (Benicar Hct 40/12.5) Tab 1 TAB PO DAILY for 30 Days, #30 TAB 5 Refills Simvastatin (Zocor) 40 Mg Tab 40 MG PO QPM, TAB Umeclidinium [place] (Incruse Ellipta) 62.5 Mcg/Inh Inh 1 PUFF INH DAILY Discontinued Medications: Hydrochlorothiazide (Hydrochlorothiazide) 12.5 Mg Tab 1 TAB PO DAILY for 30 Days, #30 TAB 5 Refills Discharge Exam Physical Exam: General Appearance: no apparent distress Eyes: EOMI ENT: hearing grossly normal Neck: trachea midline Respiratory/Chest: no respiratory distress, no accessory muscle use 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, alert, normal mood/affect Skin: normal color, warm/dry Hospital Course Acute resp failure likely related to COPD exacerbation w severe COPD/chronic respiratory failure at baseline: Failed abx/steroids x2 rounds CTA 01/29 neg for acute issues, pulm consulted, obtain ABG, CT chest, ECHO LE doppler neg for DVT improved on current treatment, appearing that he's getting back to baseline PO steroid taper DM: SSI PRN A1c 9.0, uncontrolled, discussed lifestyle changes, will follow - see discharge instructions ARF on CKD - not entirely clear baseline as only recent labs available - but had Cr of 1.4 on 01/29 - so probably baseline stage 3. glorialey worse from dehydraiton - improved w IVF, PO intake, f/u outpt labs next week, ongoing titration of HCTZ by PCP HTN: stable, continue home meds,. except will hold half of his HCTZ due to ARF on CKD CHF: stable, continue home meds CAD/CVA: continue aspirin, plavix Other: DNR/DNI DVT proph - heparin SQ Total Time Spent: Greater than 30 minutes This includes examination of the patient, discharge planning, medication reconciliation, and communication with other providers. Discharge Instructions Please refer to the electronic Patient Visit Report (Discharge Instructions) for additional information. Additional Copies To Paramjit Nieves M.D.; Taco Jensen MD
== END 2017-02-20 12:48 | disposition home or self-care (01) | DRG 190 ==
LOC: C.MS2W 14:56 → UNDOADMIN 14:56 → C.MS2W 15:39
PROVIDERS: ADMIT Family Medicine; ATTEND Family Medicine
DX: J44.1 Chronic obstructive pulmonary disease with (acute) exacerbation (principal); J96.21 Acute and chronic respiratory failure with hypoxia; N18.4 Chronic kidney disease, stage 4 (severe); N17.9 Acute kidney failure, unspecified; I50.30 Unspecified diastolic (congestive) heart failure; I27.20 Pulmonary hypertension, unspecified; E11.22 Type 2 diabetes mellitus with diabetic chronic kidney disease; I12.9 Hypertensive chronic kidney disease with stage 1 through stage 4 chronic kidney disease, or unspecified chronic kidney disease; I25.10 Atherosclerotic heart disease of native coronary artery without angina pectoris; Z99.81 Dependence on supplemental oxygen; Z66 Do not resuscitate; Z87.891 Personal history of nicotine dependence